=== PATIENT | female | born 1950 | race Caucasian/White ===

== ENCOUNTER 2023-06-01 12:39 | Outpatient (AMB) | payer MEDICARE, BC, SELFPAY ==
--- NOTE | 2023-06-01 12:48 | MHC.OFFVISWM ---
Intake VS Expanded 06/01/23 13:15 BP 122/58 L Blood Pressure Location Rt brachial Blood Pressure Position Sitting Pulse 82 Pulse Source Pulse Oximeter Temp 96.9 F Temperature Source Temporal Artery Scan Pulse Oximetry 97 Oxygen Delivery Method Room Air Height 5 ft 2 in Weight 196 lb 3.2 oz BMI 35.9 Body Fat % 43.6 Body Fat Mass 85.6 Fat Free Mass 110.4 Visceral Fat Rating 14.0 Body Water % 39.7 Body Water Mass 77.8 Muscle Mass/Score 105.0 Basal Metabolic Rate/Score 1,525 Intake Visit Reasons: (ov) F/u GBS 2011 [place] Required: No Allergies seasonal allergies Allergy (Mild, Uncoded 06/01/23 12:59) Runny Nose Ciprofloxacin Allergy (Unknown, Uncoded 05/27/19 00:00) tendon issue Medication List - Last Reconciled 06/01/23 by EDY Jones albuterol sulfate 90 mcg/actuation inhalation allopurinol 200 mg PO DAILY calcium carb and citrat-mag ox 200 mg calcium- 50 mg tabs PO cholecalciferol (vitamin D3) (Vitamin D3) 25 mcg PO DAILY coenzyme Q10 200 mg PO DAILY cyclosporine 0.05% (Restasis) 1 drp ophthalmic (eye) Q12H fluticasone propion-salmeterol 115-21 mcg/actuation (Advair HFA) inhalation glipizide ER 5 mg PO BID hydrochlorothiazide 25 mg PO DAILY liothyronine 5 mcg PO BID losartan 100 mg PO DAILY metformin ER 500 mg PO DAILY olopatadine-mometasone 665-25 mcg/spray (Ryaltris) 2 sprays intranasal BID pantoprazole 20 mg PO BID pravastatin 20 mg PO DAILY semaglutide (Ozempic) 1 mg subcut QWEEK sitagliptin phosphate (Januvia) 50 mg PO DAILY zolpidem (Ambien) 5 mg PO BEDTIME HPI HPI Comments History of Present Illness Details This is a 72-year-old female who returns to the office today in follow-up. She has a history of gastric bypass performed in 2011. Her weight today is 196.2 with a BMI of 35.9. She has not followed up in the office in the last approximately 4 years as she has resided in the [facility]. Since last being seen, she has had 2 spine surgeries and a partial colectomy for colon cancer. The spine surgeries were done in 2022 that cervical spine 6 7 and lumbar spine 4 5. The colon cancer surgery was performed in 2014. She states that her goal was to just reestablish care in case she had any questions regarding her gastric bypass. She is managed by her primary care physician whom she is known for 35 years for all of her other ongoing medical issues except she also sees a applied researcher. She states that she has a chief knowledge officer who has provided her a meal plan. She states that it is balanced. She is somewhat vague and can not exactly provide details although reports she is satisfied with her meal plan. The right she states she uses a protein shake but can not recall the exact name. One in the morning and 1 at night. Eating every 4-5 hours Exercise plan: PT exercises, walking outside Any post op complications: none GERA: continues DM: started meds 2015 HTN: improved Hyperlipidemia: continues GERD:?0-5 scale ??0 = no symptoms ??1 = symptoms noticeable but not bothersome 2 =symptoms bothersome but not daily ? 3 = symptoms bothersome and daily 4 = symptoms affect daily activities 5 = symptoms are incapacitating, unable to do daily activities ? How bad is the heartburn: 0 ? Heartburn while lying down: 0 ? Heartburn when standing up: 0 ? Heartburn after meals: 0 ? Does heartburn change your diet: 0 ? Does heartburn wake you up from sleep: 0 ? Do you have difficulty swallowin ? Do you have pain with swallowin ? If you take medicine for your reflux, does this affect your daily life: 0 Satisfaction with present condition - satisfied or not satisfied: satisfied [facility] Medical History (Updated 06/01/23 @ 13:05 by Deb Bean CMA) Family hx of colon cancer Surgical History (Updated 06/01/23 @ 13:05 by Deb Bean CMA) History of partial colectomy Hx laparoscopic cholecystectomy Hx of total mastectomy of right breast Hx of total mastectomy of left breast Hx of hysterectomy, total S/P gastric bypass Social History Alcohol intake: current Alcohol intake frequency: holidays/special occasions only Patient Tobacco Use Status: Never used Tobacco Physical Exam Const General: cooperative and no acute distress Orientation/consciousness: patient oriented x3 Resp Effort & Inspection: normal respiratory effort Auscultation: clear to auscultation bilaterally Cardio Rate: regular rate Rhythm: regular rhythm GI Inspection: Yes normal to inspection and Yes incision (well healed additional, well healed midline suprapubic scar) Palpation (GI): Soft to palpation and no masses Neuro General: patient oriented x3 Assessment & Plan Assessment & Plan (1) S/P gastric bypass: Comment: 2011 Code(s): Z98.84 - Bariatric surgery status Plan: Patient does not wish to have a meal plan provided at this visit as she wants to continue her meal plan as provided by her chief knowledge officer. She states that she had blood work done approximately 1 month ago but can not recall exactly what she had drawn. We will have her fax her lab work to us and we will see her back in approximately 4-6 weeks and will augment any blood work that she had at that time. She was encouraged to continue her pantoprazole as well as bariatric multivitamin daily. Further recommendations will be based upon lab data. She was encouraged to obtain a recumbent bike with a goal of 200-250 calories burned daily. She will call the office sooner with any questions or concerns. Coding Level of Care Code Est Pt Level 3 (10080) Diagnoses S/P gastric bypass Z98.84
[2023-06-01 13:15] VITALS: BP 122/58; PULSE 82; TEMP 36.1; O2SAT 97; BMI 35.9
== END 2023-06-01 13:52 | disposition home or self-care (01) ==
PROVIDERS: Visit Provider Physician Assistant Surgical
DX: E66.9 Obesity, unspecified (principal); Z68.35 Body mass index [BMI] 35.0-35.9, adult; Z98.84 Bariatric surgery status
CPT/HCPCS: 99213

== ENCOUNTER → 2023-06-01 12:39 | Outpatient (BNVA) | payer MEDICARE, BC, SELFPAY | PROVIDERS: Visit Provider Physician Assistant Surgical | DX: Z98.84 Bariatric surgery status (principal) | CPT/HCPCS: 99212 ==